=== PATIENT | female | born 1960 | race Caucasian/White ===

== ENCOUNTER → 2016-06-12 | Outpatient (CLI) | payer MEDICARE, OTHER ==
[~2016-06-12] MED LIST: AMIT25; BETH25 OR; CLOR7.5T3 PO; LINA290C PO; LIPI80TA16 PO; OMEP20TA PO; TRAM50TA PO; VENTAER INH; ZOFR4TAB3 PO; [UNRECOGNIZED DRUG - CODE] SL
[2016-06-12 16:14] LABS: BICARBONATE 24.4 MEQ/L (21.0-32.0); MAGNESIUM 2.2 MG/DL (1.5-2.5); POTASSIUM 3.5 MEQ/L (3.5-5.1)
[2016-06-12 16:25] LABS: CORTISOL 4.7 MCG/DL
[2016-06-14 05:03] LABS: GROWTH HORMONE 0.05 ng/mL (0.01 - 3.61)
[2016-06-15 19:53] LABS: DEHYDROEPIANDROSTERONE SULFATE 16 mcg/dL (8-188)
[2016-06-16 03:52] LABS: ADRENOCORTICOTROPHIC 11 pg/mL (6-50)
[2016-06-19 17:52] LABS: IGF ZSCORE FEMALE 0 SD (-2.0 - +2.0); IGF ZSCORE MALE ND (()); IGF-1 GC/MS 133 ng/mL (50-317)
== END ==
LOC: CLAB 13:40
PROVIDERS: ATTEND Internal Medicine Endocrinology, Diabetes & Metabolism
DX: E23.6 Other disorders of pituitary gland (principal); E03.9 Hypothyroidism, unspecified; E55.9 Vitamin D deficiency, unspecified; E20.9 Hypoparathyroidism, unspecified; E61.2 Magnesium deficiency; E61.8 Deficiency of other specified nutrient elements
CPT/HCPCS: 36415; 80048; 82024; 82157; 82306; 82533; 82607; 82627; 82747; 83003; 83519; 83735; 83930; 83935; 83970; 84100; 84146; 84305

== ENCOUNTER → 2016-07-30 | Outpatient (CLI) | payer MEDICARE, OTHER ==
[2016-07-30 11:50] LABS: MICRO ALBUMIN RANDOM URINE RAW 10.8 MG/L (0.0-30.0)
[2016-07-30 12:35] LABS: BICARBONATE 28.5 MEQ/L (21.0-32.0); FREE T3 2.61 PG/ML (2.18-3.98); FREE T4 0.89 NG/DL (0.76-1.46); POTASSIUM 3.5 MEQ/L (3.5-5.1)
[2016-07-31 23:53] LABS: THYROGLOB ABS 47 IU/mL (< OR = 1)
== END ==
LOC: CLAB 10:20
PROVIDERS: ATTEND Internal Medicine Endocrinology, Diabetes & Metabolism
DX: E23.6 Other disorders of pituitary gland (principal); E27.0 Other adrenocortical overactivity; E27.1 Primary adrenocortical insufficiency; E55.9 Vitamin D deficiency, unspecified; E03.9 Hypothyroidism, unspecified; M81.0 Age-related osteoporosis without current pathological fracture; E06.9 Thyroiditis, unspecified; E04.9 Nontoxic goiter, unspecified; D51.9 Vitamin B12 deficiency anemia, unspecified
CPT/HCPCS: 36415; 80048; 82043; 82306; 82533; 82607; 82747; 83970; 84432; 84439; 84443; 84481; 86376; 86800

== ENCOUNTER → 2016-10-02 | Outpatient (CLI) | payer MEDICARE, OTHER ==
[2016-10-02 11:21] LABS: BICARBONATE 26.9 MEQ/L (21.0-32.0); POTASSIUM 3.7 MEQ/L (3.5-5.1)
== END ==
LOC: CLAB 10:02
PROVIDERS: ATTEND Internal Medicine Endocrinology, Diabetes & Metabolism
DX: E55.9 Vitamin D deficiency, unspecified (principal); E21.3 Hyperparathyroidism, unspecified
CPT/HCPCS: 36415; 80048; 82306; 83970

== ENCOUNTER → 2017-01-17 | Outpatient (CLI) | payer MEDICARE, OTHER ==
[2017-01-17 12:54] LABS: AUTOMATED NEUTROPHIL # 2.4 TH/MM3 (1.8-7.7); BASOPHIL % 0.6 % (0.0-2.0); EOSINOPHIL # 0.2 TH/MM3 (0-0.4); EOSINOPHIL % 4.3 % (0.0-4.0); HEMATOCRIT 38.5 % (35.0-46.0); HEMO FLAGS DIFF FINAL; LYMPHOCYTE # 1.9 TH/MM3 (1.0-4.8); MEAN CELL VOLUME 90.7 FL (80.0-100.0); MEAN CORPUSCULAR HEMOGLOBIN 30.4 PG (27.0-34.0); MEAN CORPUSCULAR HGB CONC 33.5 % (32.0-36.0); MONO % 9.8 % (0.0-8.0); NEUT % 48.3 % (16.0-70.0); PLATELET COUNT 164 TH/MM3 (150-450); RED BLOOD COUNT 4.25 MIL/MM3 (4.00-5.30); RED CELL DISTRIBUTION WIDTH 14.4 % (11.6-17.2)
[2017-01-17 13:24] LABS: BICARBONATE 23.9 MEQ/L (21.0-32.0); MAGNESIUM 2.2 MG/DL (1.5-2.5); POTASSIUM 3.6 MEQ/L (3.5-5.1)
[2017-01-17 13:26] LABS: INDIRECT BILIRUBIN 0.3 MG/DL (0.0-0.8); TOTAL BILIRUBIN ADULT 0.4 MG/DL (0.2-1.0)
[2017-01-17 13:35] LABS: FREE T3 2.65 PG/ML (2.18-3.98); FREE T4 0.81 NG/DL (0.76-1.46)
== END ==
LOC: CLAB 10:42
PROVIDERS: ATTEND Internal Medicine Endocrinology, Diabetes & Metabolism
DX: E55.9 Vitamin D deficiency, unspecified (principal); N20.0 Calculus of kidney; D89.89 Other specified disorders involving the immune mechanism, not elsewhere classified; R19.7 Diarrhea, unspecified; R10.11 Right upper quadrant pain; K83.0 Cholangitis; E04.9 Nontoxic goiter, unspecified; E06.3 Autoimmune thyroiditis; E03.9 Hypothyroidism, unspecified; Z78.0 Asymptomatic menopausal state; E21.3 Hyperparathyroidism, unspecified
CPT/HCPCS: 36415; 80048; 80076; 82024; 82088; 82533; 82627; 83690; 83735; 84075; 84100; 84244; 84439; 84443; 84481; 85025

== ENCOUNTER → 2017-05-01 | Outpatient (CLI) | payer MEDICARE, OTHER ==
[2017-05-01 11:38] LABS: AUTOMATED NEUTROPHIL # 2.6 TH/MM3 (1.8-7.7); BASOPHIL % 0.5 % (0.0-2.0); EOSINOPHIL # 0.2 TH/MM3 (0-0.4); EOSINOPHIL % 2.8 % (0.0-4.0); HEMATOCRIT 41.2 % (35.0-46.0); HEMOGLOBIN 14.4 GM/DL (11.6-15.3); LYMPH % 38.6 % (9.0-44.0); MEAN CELL VOLUME 89.1 FL (80.0-100.0); MEAN CORPUSCULAR HEMOGLOBIN 31.1 PG (27.0-34.0); MEAN CORPUSCULAR HGB CONC 34.9 % (32.0-36.0); MEAN PLATELET VOLUME 7.8 FL (7.0-11.0); MONO % 8.8 % (0.0-8.0); MONOCYTE # 0.5 TH/MM3 (0-0.9); NEUT % 49.3 % (16.0-70.0); PLATELET COUNT 215 TH/MM3 (150-450); RED BLOOD COUNT 4.62 MIL/MM3 (4.00-5.30); RED CELL DISTRIBUTION WIDTH 14.1 % (11.6-17.2); WHITE BLOOD COUNT 5.3 TH/MM3 (4.0-11.0)
[2017-05-01 11:49] LABS: CHOLESTEROL/ HDL RATIO 4.67 RATIO; HDL CHOLESTEROL 65.4 MG/DL (40.0-60.0)
[2017-05-01 13:04] LABS: WESTERGREN SEDIMENTATION RATE 12 mm/hr (0-30)
== END ==
LOC: CLAB 10:08
PROVIDERS: ATTEND Internal Medicine Endocrinology, Diabetes & Metabolism
DX: E55.9 Vitamin D deficiency, unspecified (principal); R97.8 Other abnormal tumor markers; M25.50 Pain in unspecified joint; R70.0 Elevated erythrocyte sedimentation rate; E78.4 Other hyperlipidemia; Z13.228 Encounter for screening for other metabolic disorders; Z79.899 Other long term (current) drug therapy
CPT/HCPCS: 36415; 80061; 82306; 82533; 85025; 85652

== ENCOUNTER → 2017-08-07 | Outpatient (CLI) | payer MEDICARE, OTHER ==
[2017-08-07 10:11] LABS: ALBUMIN 3.7 GM/DL (3.4-5.0); ALT (GPT) 22 U/L (10-53); AST (GOT) 22 U/L (15-37); BICARBONATE 23.6 MEQ/L (21.0-32.0); BLOOD UREA NITROGEN 17 MG/DL (7-18); CALCIUM 8.9 MG/DL (8.5-10.1); CHLORIDE 111 MEQ/L (98-107); CREATININE 0.69 MG/DL (0.50-1.00); DIRECT BILIRUBIN ADULT 0.1 MG/DL (0.0-0.2); GLOMERULAR FILTRATION RATE 87 ML/MIN (>89); GLUCOSE,FASTING 92 MG/DL (74-99); SODIUM (NA) 144 MEQ/L (136-145)
[2017-08-07 10:13] LABS: CHOLESTEROL/ HDL RATIO 2.84 RATIO; HDL CHOLESTEROL 50.7 MG/DL (40.0-60.0)
[2017-08-07 10:14] LABS: ALKALINE PHOSPHATASE 101 U/L (45-117); TOTAL BILIRUBIN ADULT 0.2 MG/DL (0.2-1.0); TOTAL PROTEIN 7.9 GM/DL (6.4-8.2)
[2017-08-09 15:43] LABS: TRANSGLUTAMINASE IGA AB <1.2 U/mL; TRANSGLUTAMINASE IGG AB <1.2 U/mL
== END ==
LOC: CLAB 09:00
PROVIDERS: ATTEND Internal Medicine Endocrinology, Diabetes & Metabolism
DX: E78.4 Other hyperlipidemia (principal); R10.84 Generalized abdominal pain; E55.9 Vitamin D deficiency, unspecified; E27.40 Unspecified adrenocortical insufficiency; K90.0 Celiac disease; R89.1 Abnormal level of hormones in specimens from other organs, systems and tissues
CPT/HCPCS: 36415; 80053; 80061; 82024; 82150; 82248; 82306; 82533; 83516; 83690